=== PATIENT | male | born 1975 | race Hispanic/Latino ===

== ENCOUNTER 2019-01-12 19:47 | Emergency (ER) | payer SELFPAY ==
[2019-01-12 19:54] VITALS: BP 147/81; PULSE 67; RESP 20; TEMP 97.5; O2SAT 96
--- NOTE | 2019-01-12 20:14 | C.PDOC ---
Time Seen by Provider: 01/12/19 20:00 Chief Complaint (Nursing): Substance Abuse Past Medical History Vital Signs: Last Vital Signs Temp 97.5 F L 01/12/19 19:48 Pulse 67 01/12/19 19:48 Resp 20 01/12/19 19:48 BP 147/81 01/12/19 19:48 Pulse Ox 96 01/12/19 19:48 Primary Care Provider: FAMILY PROVIDER,NO - Social History Hx Alcohol Use: Yes Hx Substance Use: Yes - Immunization History Hx Tetanus Toxoid Vaccination: No Hx Influenza Vaccination: No Hx Pneumococcal Vaccination: No ED Course And Treatment O2 Sat by Pulse Oximetry: 96 Disposition - Disposition
== END 2019-01-12 20:00 | disposition left against medical advice (07) ==
LOC: C.ER 19:47
DX: Z02.89 Encounter for other administrative examinations (principal); F19.10 Other psychoactive substance abuse, uncomplicated